=== PATIENT | female | born 1985 | race Caucasian/White ===

== ENCOUNTER 2016-08-04 15:30 | Inpatient (IN) | payer OTHER ==
[~2016-08-04] VITALS: Ht 157.5 cm; Wt 76.4 kg
[~2016-08-04 15:30] MED LIST: BIRTH CONTROL PILL; ERRIN0.35 MG PO; ZOFRAN4 M1 PO
[2016-09-12] VITALS (55 sets, daily range): BP systolic 53–138; BP diastolic 22–82; PULSE 78–172; TEMP 97.6–98.8
[2016-09-12 06:19] LABS: BASO % 0.2 % (0.0-2.0); EOS # 0.1 (0.0-0.7); EOS % 0.7 % (0-4.0); GRAN # 7.9 (1.4-6.5); HEMATOCRIT 33.8 % (37.0-47.0); HEMOGLOBIN 11.1 g/dl (12.5-16.0); LYMPH # 1.8 (1.2-3.4); LYMPH % 16.7 % (20.0-51.0); MEAN CELL VOLUME 85 fl (80.0-100.0); MEAN CORPUSCULAR HEMOGLOBIN 28 pg (27.0-31.0); MEAN CORPUSCULAR HGB CONC 33 g/dl (33.0-37.0); MEAN PLATELET VOLUME 10.7 fl (7.4-10.4); MONO % 8.8 % (1.7-9.3); PLATELET COUNT 242 K/mm3 (130-400); REDCELL DISTRIBUTION WIDTH-CV 13.4 % (11.5-14.5); WHITE BLOOD COUNT 10.8 K/mm3 (4.8-10.8)
[2016-09-12] MEDS ORDERED: PRENATAL (06:28)
[2016-09-12 11:26] LABS: MEAN CELL VOLUME 87 fl (80.0-100.0); MEAN CORPUSCULAR HGB CONC 33 g/dl (33.0-37.0); MEAN PLATELET VOLUME 11.1 fl (7.4-10.4); PLATELET COUNT 224 K/mm3 (130-400); RED BLOOD COUNT 3.04 M/mm3 (4.10-5.30); REDCELL DISTRIBUTION WIDTH-CV 13.6 % (11.5-14.5)
[2016-09-12 11:38] LABS: HEMOGLOBIN 8.6 g/dl (12.5-16.0); MEAN CORPUSCULAR HEMOGLOBIN 28 pg (27.0-31.0)
[2016-09-12 11:39] LABS: HEMATOCRIT 26.5 % (37.0-47.0)
[2016-09-12 17:08] LABS: BASO % 0.2 % (0.0-2.0); EOS % 0.1 % (0-4.0); GRAN # 9.8 (1.4-6.5); GRAN % 84.8 % (42.2-75.2); HEMATOCRIT 25.2 % (37.0-47.0); HEMOGLOBIN 8.5 g/dl (12.5-16.0); LYMPH # 0.9 (1.2-3.4); LYMPH % 8.1 % (20.0-51.0); MEAN CELL VOLUME 88 fl (80.0-100.0); MEAN CORPUSCULAR HEMOGLOBIN 30 pg (27.0-31.0); MEAN CORPUSCULAR HGB CONC 34 g/dl (33.0-37.0); MEAN PLATELET VOLUME 10.8 fl (7.4-10.4); MONO # 0.7 (0.1-0.6); MONO % 6.3 % (1.7-9.3); PLATELET COUNT 167 K/mm3 (130-400); RED BLOOD COUNT 2.87 M/mm3 (4.10-5.30); REDCELL DISTRIBUTION WIDTH-CV 13.4 % (11.5-14.5); WHITE BLOOD COUNT 11.5 K/mm3 (4.8-10.8)
[2016-09-13 02:00] VITALS: BP 126/73; PULSE 116; TEMP 98
[2016-09-13 04:00] VITALS: BP 120/64; PULSE 119; TEMP 98.3
[2016-09-13 07:15] VITALS: BP 125/76; PULSE 116; TEMP 97.8
[2016-09-13 08:30] LABS: BASO % 0.2 % (0.0-2.0); EOS # 0.1 (0.0-0.7); EOS % 0.4 % (0-4.0); GRAN # 9.1 (1.4-6.5); GRAN % 78.3 % (42.2-75.2); LYMPH # 1.6 (1.2-3.4); LYMPH % 13.6 % (20.0-51.0); MEAN CELL VOLUME 86 fl (80.0-100.0); MEAN CORPUSCULAR HGB CONC 34 g/dl (33.0-37.0); MEAN PLATELET VOLUME 10.6 fl (7.4-10.4); MONO # 0.8 (0.1-0.6); PLATELET COUNT 180 K/mm3 (130-400); RED BLOOD COUNT 3.28 M/mm3 (4.10-5.30); WHITE BLOOD COUNT 11.6 K/mm3 (4.8-10.8)
[2016-09-13 08:57] LABS: HEMATOCRIT 28.1 % (37.0-47.0); HEMOGLOBIN 9.6 g/dl (12.5-16.0); MEAN CORPUSCULAR HEMOGLOBIN 29 pg (27.0-31.0)
[2016-09-13 12:10] VITALS: BP 114/77; PULSE 112; TEMP 97.7
[2016-09-13 18:45] VITALS: BP 120/73; PULSE 108; TEMP 97.1
[2016-09-14 07:00] VITALS: BP 116/68; PULSE 78; TEMP 98.2
[2016-09-14 07:56] LABS: BASO % 0.1 % (0.0-2.0); EOS # 0.1 (0.0-0.7); GRAN # 10.5 (1.4-6.5); LYMPH # 1.3 (1.2-3.4); LYMPH % 10.5 % (20.0-51.0); MEAN CELL VOLUME 88 fl (80.0-100.0); MEAN CORPUSCULAR HGB CONC 34 g/dl (33.0-37.0); MEAN PLATELET VOLUME 10.2 fl (7.4-10.4); MONO # 0.6 (0.1-0.6); MONO % 4.8 % (1.7-9.3); PLATELET COUNT 191 K/mm3 (130-400); RED BLOOD COUNT 3.07 M/mm3 (4.10-5.30); REDCELL DISTRIBUTION WIDTH-CV 14.5 % (11.5-14.5); WHITE BLOOD COUNT 12.6 K/mm3 (4.8-10.8)
[2016-09-14 08:13] LABS: HEMATOCRIT 26.9 % (37.0-47.0); MEAN CORPUSCULAR HEMOGLOBIN 29 pg (27.0-31.0)
[2016-09-14 16:19] VITALS: BP 114/68; PULSE 88; TEMP 97.2
[2016-09-14 22:30] VITALS: BP 103/77; PULSE 101; TEMP 97.9
[2016-09-15 07:00] VITALS: BP 131/76; PULSE 98; TEMP 97.6
[2016-09-15 07:32] LABS: MEAN CELL VOLUME 89 fl (80.0-100.0); MEAN CORPUSCULAR HGB CONC 33 g/dl (33.0-37.0); MEAN PLATELET VOLUME 9.8 fl (7.4-10.4); PLATELET COUNT 209 K/mm3 (130-400); RED BLOOD COUNT 3.06 M/mm3 (4.10-5.30); REDCELL DISTRIBUTION WIDTH-CV 14.3 % (11.5-14.5); WHITE BLOOD COUNT 10.3 K/mm3 (4.8-10.8)
[2016-09-15 08:04] LABS: HEMATOCRIT 27.1 % (37.0-47.0); MEAN CORPUSCULAR HEMOGLOBIN 29 pg (27.0-31.0)
[2016-09-15 16:16] VITALS: BP 117/72; PULSE 81; TEMP 97.8
[2016-09-15 20:15] VITALS: BP 129/76; PULSE 94; TEMP 98.3
[2016-09-16 10:00] VITALS: BP 127/80; PULSE 99
[2016-09-16] MEDS ORDERED: PERCOCET 325 MG1 TA2 PO (11:26)
[2016-09-16] MEDS ORDERED: MOTRIN 800800 MG/TAB PO (11:26)
[2016-09-16] MEDS ORDERED: NEWMANS TOP (11:28)
[2016-09-16 14:39] VITALS: BP 116/80; PULSE 89; TEMP 97.4
== END 2016-09-16 16:15 | disposition home or self-care (01) | DRG 765 ==
LOC: OB 09-12 05:21 → LDR 09-12 06:44 → OB 09-16 16:15 → EDSTATUS 09-20 06:42 → LDRO 09-20 15:30
PROVIDERS: Obstetrics & Gynecology
PROC: 10D00Z1 Extraction of Products of Conception, Low, Open Approach (ICD-10-PCS; principal; 2016-09-12)
PROC: 0W3R0ZZ Control Bleeding in Genitourinary Tract, Open Approach (ICD-10-PCS; 2016-09-12)
DX: O34.211 Maternal care for low transverse scar from previous cesarean delivery (principal); O72.1 Other immediate postpartum hemorrhage; D62 Acute posthemorrhagic anemia; O99.013 Anemia complicating pregnancy, third trimester; N85.8 Other specified noninflammatory disorders of uterus; O69.81X0 Labor and delivery complicated by cord around neck, without compression, not applicable or unspecified; Z3A.39 39 weeks gestation of pregnancy; Z37.0 Single live birth
CPT/HCPCS: J0330; J0690; J1885; J1940; J2210; J2270; J2370; J2405; J2590; J2704; J2710; J2765; J3010; J7030; J7120; P9016